=== PATIENT | female | born 1955 | race Hispanic/Latino ===

== ENCOUNTER 2021-11-20 10:40 | Observation (INO) | payer OTHER, MEDICARE ==
[2021-11-18 10:02] LABS: BASOPHILS % (AUTO) 0.9 % (0.0-5.0); EOSINOPHILS % (AUTO) 1.7 % (0.0-8.0); LYMPHOCYTES % (AUTO) 27.3 % (21.0-51.0); MEAN CORPUSCULAR HEMOGLOBIN 30.4 pg (27.0-33.0); MEAN CORPUSCULAR HGB CONC 33.1 g/dL (32.0-36.0); MEAN CORPUSCULAR VOLUME 91.9 fL (79-99); MONOCYTES % (AUTO) 7.3 % (3.0-13.0); NEUTROPHILS % (AUTO) 62.2 % (40.0-77.0); PLATELET COUNT (AUTO) 152 K/uL (130-400); RED BLOOD CELL COUNT(AUTO) 4.57 MIL/uL (4.00-5.50); RED CELL DISTRIBUTION WIDTH 13.7 % (11.0-15.5); WHITE BLOOD COUNT (AUTO) 6.6 K/uL (4.8-10.8)
[2021-11-18 10:11] LABS: CREATININE 0.8 mg/dL (0.5-1.5)
[2021-11-19 11:53] VITALS: BP 161/83
[2021-11-19 14:30] LABS: APPEARANCE,URINE Clear (CLEAR); BILIRUBIN,URINE Negative (NEGATIVE); COLOR,URINE Yellow (YELLOW); GLUCOSE, URINE (UA) Negative (NEGATIVE); KETONES,URINE Negative (NEGATIVE); LEUKOCYTE ESTERASE ,URINE Negative (NEGATIVE); NITRATE,URINE Negative (NEGATIVE); OCCULT BLOOD,URINE Negative (NEGATIVE); PROTEIN,URINE Negative (NEGATIVE); UROBILINOGEN,URINE 0.2 mg/dL (0.2-1.0)
[2021-11-19 14:41] LABS: INR 0.93 (0.85-1.15); PROTHROMBIN TIME 10.2 SEC (9.6-11.6)
[2021-11-19 14:43] LABS: PARTIAL THROMBOPLASTIN TIME 27.1 SEC (26.3-35.5)
[2021-11-20] VITALS (19 sets, daily range): BP systolic 116–151; BP diastolic 57–76
[~2021-11-20] VITALS: Ht 170.2 cm; Wt 117.9 kg
[~2021-11-20 10:40] MED LIST: CEFAZOLIN SODIUM 1 GM VIAL IRRIG ONE; CEFAZOLIN SODIUM 1 GM VIAL IVP SCH; CEFAZOLIN SODIUM 2 GM VIAL IV ONE; CHOL2000 PO; ESTR1TAB17 PO; LEVO175C2 PO; LOSA1TAB37 PO; PONA15TA3 PO; TRANEXAMIC ACID 1000MG/10ML IV ONE
[2021-11-20] MEDS ORDERED: LACTATED RINGERS 1000ML 1,000 ML IV ONE (11:01)
[2021-11-20] MEDS ORDERED: CELECOXIB 200 MG CAP ONE (12:55)
[2021-11-20] MEDS ORDERED: METOCLOPRAMIDE 10 MG/2 ML VIAL ONE (12:55)
[2021-11-20] MEDS ORDERED: ACETAMINOPHEN 500 MG TABLET ONE (12:55)
[2021-11-20] MEDS ORDERED: KETOROLAC 15MG/ML VIAL (15MG/ML) ONE (12:55)
[2021-11-20] MEDS ORDERED: MIDAZOLAM HCL 1 MG/ML 2ML VIAL ONE (14:11)
[2021-11-20] MEDS ORDERED: FENTANYL CITRATE PF 50 MCG/1 ML 5ML AMP IV ONE (14:11)
[2021-11-20] MEDS ORDERED: SUCCINYLCHOLINE CHLORIDE 20 MG/ML 10 ML VIAL ONE (14:11)
[2021-11-20] MEDS ORDERED: ROCURONIUM 10MG/1ML SYR 10 MG/ML ML ONE (14:11)
[2021-11-20] MEDS ORDERED: LIDOCAINE PF 100MG/5ML (2%) SYRINGE 5ML ONE (14:11)
[2021-11-20] MEDS ORDERED: PROPOFOL 10 MG/ML 20ML VIAL IV ONE (14:11)
[2021-11-20] MEDS ORDERED: ROPIVACAINE 0.5% 5MG/ML 30ML IJ ONE (14:13)
[2021-11-20] MEDS ORDERED: CEFAZOLIN SODIUM 2 GM VIAL IV ONE (14:30)
[2021-11-20] MEDS ORDERED: GLYCOPYRROLATE 1 MG/5 ML SYRINGE ONE (14:45)
[2021-11-20] MEDS ORDERED: CEFAZOLIN SODIUM 1 GM VIAL ONE (14:47)
[2021-11-20] MEDS ORDERED: TRANEXAMIC ACID 1000MG/10ML ONE ×2 (14:47→16:56)
[2021-11-20] MEDS ORDERED: TRANEXAMIC ACID 1000MG/10ML IV ONE (15:00)
[2021-11-20] MEDS ORDERED: CEFAZOLIN SODIUM 1 GM VIAL IRRIG ONE (15:10)
[2021-11-20] MEDS ORDERED: NEOSTIGMINE 5MG/5ML SYR IV ONE (16:59)
[2021-11-20] MEDS ORDERED: KETOROLAC 15MG/ML VIAL (15MG/ML) IV PRN (17:00)
[2021-11-20] MEDS ORDERED: POTASSIUM CHLORIDE 20MEQ/100ML 100 ML IV PRN (17:00)
[2021-11-20] MEDS ORDERED: PHENYLEPHRINE HCL 10 MG/ML 1ML VIAL IV ONE (17:00)
[2021-11-20] MEDS ORDERED: DiphenhydrAMINE HCL 50 MG/ML VIAL IVP PRN (17:00)
[2021-11-20] MEDS ORDERED: CALCIUM CARB 500MG PO PRN (17:00)
[2021-11-20] MEDS ORDERED: OXYCODONE HCL 5 MG TAB PO PRN (17:00)
[2021-11-20] MEDS ORDERED: KCL 20 MEQ ERTAB PO PRN (17:00)
[2021-11-20] MEDS ORDERED: TRAMADOL HCL 50 MG TABLET PO PRN (17:00)
[2021-11-20] MEDS ORDERED: POTASSIUM CHLORIDE 10% ELIXIR 20 MEQ/15 ML UDCUP PO PRN (17:00)
[2021-11-20] MEDS ORDERED: FERROUS FUMARATE 324 MG TABLET PO PRN (17:00)
[2021-11-20] MEDS ORDERED: ONDANSETRON 4MG INJ IVP PRN (17:00)
[2021-11-20] MEDS ORDERED: LIDOCAINE HCL-MPF 1% 2ML VIAL IV PRN (17:00)
[2021-11-20] MEDS ORDERED: FENTANYL CITRATE PF 50 MCG/1 ML 2ML VIAL ONE (17:10)
[2021-11-20] MEDS ORDERED: MEPERIDINE-PF 25 MG/ML SYG ONE ×2 (17:41→17:51)
[2021-11-20] MEDS: CELECOXIB 200 MG CAP PO SCH (22:21)
[2021-11-20] MEDS: CEFAZOLIN SODIUM 1 GM VIAL IVP SCH (22:21)
[2021-11-20] MEDS: FAMOTIDINE 20MG TAB PO SCH (22:21)
[2021-11-20] MEDS: PREGABALIN 25 MG CAP PO SCH (22:21)
[2021-11-20] MEDS: 0.9%NACL 1000ML 1,000 ML IV SCH (22:22)
[2021-11-20] MEDS: ACETAMINOPHEN 500 MG TABLET PO SCH (22:22)
[2021-11-21] VITALS (8 sets, daily range): BP systolic 115–144; BP diastolic 51–74
[2021-11-21] MEDS: ACETAMINOPHEN 500 MG TABLET PO SCH ×3 (00:56→17:49)
[2021-11-21] MEDS: 0.9%NACL 1000ML 1,000 ML IV SCH ×2 (03:00→13:00)
[2021-11-21 04:26] LABS: HEMATOCRIT 38.3 % (36-48); MEAN CORPUSCULAR HEMOGLOBIN 31.1 pg (27.0-33.0); MEAN CORPUSCULAR HGB CONC 34.2 g/dL (32.0-36.0); RED BLOOD CELL COUNT(AUTO) 4.21 MIL/uL (4.00-5.50); RED CELL DISTRIBUTION WIDTH 13.3 % (11.0-15.5); WHITE BLOOD COUNT (AUTO) 10.7 K/uL (4.8-10.8)
[2021-11-21 04:50] LABS: CREATININE 0.9 mg/dL (0.5-1.5); POTASSIUM 4.1 mmol/L (3.5-5.1)
[2021-11-21] MEDS: CEFAZOLIN SODIUM 1 GM VIAL IVP SCH (05:12)
[2021-11-21] MEDS: PREGABALIN 25 MG CAP PO SCH ×2 (08:40→20:26)
[2021-11-21] MEDS: CELECOXIB 200 MG CAP PO SCH ×2 (08:41→20:26)
[2021-11-21] MEDS: APIXABAN 2.5 MG TABLET PO SCH ×2 (08:41→20:26)
[2021-11-21] MEDS: FAMOTIDINE 20MG TAB PO SCH ×2 (08:41→20:26)
[2021-11-21] MEDS: POLYETHYLENE GLYCOL 3350 17 GM POWD.PACK PO SCH (08:41)
[2021-11-21] MEDS: LOSARTAN/HYDROCHLOROTHIAZIDE 50-12.5MG TABLET PO SCH (08:41)
[2021-11-21] MEDS: ESTRADIOL 0.5 MG TABLET PO SCH (08:42)
[2021-11-21] MEDS: **HM**(Cholecalciferol (Vitamin D3) (Vitamin D3) 50 MCG PO SCH (08:42)
[2021-11-21] MEDS: PONATINIB HCL PO SCH (08:43)
[2021-11-21] MEDS: LEVOTHYROXINE 100 MCG TABLET PO SCH (08:46)
[2021-11-21] MEDS: LEVOTHYROXINE 75 MCG TABLET PO SCH (08:46)
[2021-11-21] MEDS: OXYCODONE HCL 5 MG TAB PO PRN ×3 (08:47→17:49)
[2021-11-22] MEDS: ACETAMINOPHEN 500 MG TABLET PO SCH ×3 (01:00→16:34)
[2021-11-22 03:51] VITALS: BP 131/69
[2021-11-22] MEDS: LEVOTHYROXINE 75 MCG TABLET PO SCH (05:57)
[2021-11-22] MEDS: LEVOTHYROXINE 100 MCG TABLET PO SCH (05:57)
[2021-11-22 07:59] VITALS: BP 103/55
[2021-11-22] MEDS: POLYETHYLENE GLYCOL 3350 17 GM POWD.PACK PO SCH (08:38)
[2021-11-22] MEDS: ESTRADIOL 0.5 MG TABLET PO SCH (08:39)
[2021-11-22] MEDS: LOSARTAN/HYDROCHLOROTHIAZIDE 50-12.5MG TABLET PO SCH ×2 (08:39→09:00)
[2021-11-22] MEDS: FAMOTIDINE 20MG TAB PO SCH (08:40)
[2021-11-22] MEDS: CELECOXIB 200 MG CAP PO SCH (08:40)
[2021-11-22] MEDS: PREGABALIN 25 MG CAP PO SCH (08:41)
[2021-11-22] MEDS: APIXABAN 2.5 MG TABLET PO SCH (08:41)
[2021-11-22] MEDS: OXYCODONE HCL 5 MG TAB PO PRN (08:42)
[2021-11-22] MEDS: PONATINIB HCL PO SCH (09:00)
[2021-11-22] MEDS: **HM**(Cholecalciferol (Vitamin D3) (Vitamin D3) 50 MCG PO SCH (09:00)
[2021-11-22 11:04] VITALS: BP 115/70
[2021-11-22] MEDS ORDERED: HYDR-4060 PO (15:47)
[2021-11-22] MEDS ORDERED: APIX2.5T PO (15:47)
[2021-11-23] MEDS ORDERED: BISACODYL 10 MG SUPP.RECT RC PRN (17:00)
== END 2021-11-22 18:04 ==
LOC: DAH 10:40 → DAHIP 10:41 → DAH 10:41 → 4BH 18:21
PROVIDERS: ADMIT Orthopaedic Surgery; ATTEND Orthopaedic Surgery
DX: M17.12 Unilateral primary osteoarthritis, left knee (principal); Z20.822 Contact with and (suspected) exposure to COVID-19; M25.562 Pain in left knee; G89.29 Other chronic pain; M21.062 Valgus deformity, not elsewhere classified, left knee; I10 Essential (primary) hypertension; E03.9 Hypothyroidism, unspecified; K80.80 Other cholelithiasis without obstruction; R26.89 Other abnormalities of gait and mobility; Z85.6 Personal history of leukemia; Z90.710 Acquired absence of both cervix and uterus; Z90.49 Acquired absence of other specified parts of digestive tract; Z79.899 Other long term (current) drug therapy; Z98.890 Other specified postprocedural states
CPT/HCPCS: 27447; 36415 ×3; 64447; 76942; 80048 ×2; 81003; 85025; 85027; 85610; 85730; 87635; 87641; 96374; 96375; 96376; 97039 ×4; 97116 ×4; 97161; 97530 ×2; A4215; A4221; A4222; A4223; A4600; A4649 ×5; A4663; A5120; A9272; C1776; C9803; G0378 ×46; J0330; J0690 ×6; J1885 ×2; J2001; J2175 ×2; J2250; J2370; J2704; J2710; J2765; J2795; J3010 ×2; J3490 ×4; J7030; J7120

== ENCOUNTER 2024-08-23 10:41 | Day surgery (SDC) | payer OTHER, MEDICARE ==
[2024-08-21 11:09] VITALS: BP 133/71; PULSE 61; RESP 18; TEMP 97.2
[2024-08-21 11:09] LABS: BASOPHILS # (AUTO) 0.08 K/uL (0.00-0.20); BASOPHILS % (AUTO) 0.9 % (0.0-5.0); EOSINOPHILS # (AUTO) 0.16 K/uL (0.00-0.70); EOSINOPHILS % (AUTO) 1.9 % (0.0-8.0); HEMATOCRIT 40.3 % (36-48); IMMATURE GRANULOCYTE ABSOLUTE 0.06 K/uL (0-1); LYMPHOCYTES % (AUTO) 23.2 % (21.0-51.0); MEAN CORPUSCULAR HEMOGLOBIN 30.3 pg (27.0-33.0); MEAN CORPUSCULAR HGB CONC 33.3 g/dL (32.0-36.0); MEAN CORPUSCULAR VOLUME 91.2 fL (79-99); MONOCYTES # (AUTO) 0.6 K/uL (0.1-1.0); MONOCYTES % (AUTO) 7.2 % (3.0-13.0); NEUTROPHILS # (AUTO) 5.6 K/uL (1.8-7.7); NEUTROPHILS % (AUTO) 66.1 % (40.0-77.0); PLATELET COUNT (AUTO) 224 K/uL (130-400); RED BLOOD CELL COUNT(AUTO) 4.42 MIL/uL (4.00-5.50); RED CELL DISTRIBUTION WIDTH 14.2 % (11.0-15.5); WHITE BLOOD COUNT (AUTO) 8.5 K/uL (4.8-10.8)
[2024-08-21 11:19] LABS: INR 0.97 (0.85-1.15); PROTHROMBIN TIME 10.3 SEC (9.6-11.6)
[2024-08-21 11:21] LABS: CREATININE 0.9 mg/dL (0.5-1.0); PARTIAL THROMBOPLASTIN TIME 26.3 SEC (26.3-35.5); POTASSIUM 4.5 mmol/L (3.5-5.1)
--- NOTE | 2024-08-21 11:34 | HMCIMG ---
Exam Type: CHEST 1VW Clinical Information: PRE OP Comparison: None Findings: The lungs are clear of infiltrates. The heart is normal in size. The bony and soft tissue structures of the chest are unremarkable. Impression: Clear lungs.
[2024-08-21 11:41] LABS: B-TYPE NATRIURETIC PEPTIDE 57 pg/mL (0-100)
--- NOTE | 2024-08-21 11:47 | EKG ---
[facility] Test Date: 2024-08-21 Test Time: 10:49:30 Pat Name: LUCIA MADSEN Department: [facility] Room: Gender: F Surgical Coordinator: [id number] : 1955 Requested By: VIOLETA GARCIA Order Number: [id number] Reading MD: Maximino Wharton Measurements Intervals [place] Rate: 58 P: 16 GA: 199 QRS: -47 QRSD: 139 T: 58 QT: 429 QTc: 410 Interpretive Statements Sinus rhythm Multiple ventricular premature complexes Nonspecific IVCD with LAD Left ventricular hypertrophy No previous ECG available for comparison Electronically Signed On 08-22-2024 23:24:32 CDT by Maximino Wharton Please click the below link to view image of tracing.
[~2024-08-23] VITALS: Ht 170.2 cm; Wt 107.4 kg
[2024-08-23] VITALS (8 sets, daily range): BP systolic 124–154; BP diastolic 67–88; PULSE 57–72; RESP 10–18; TEMP 97.2–97.4
[~2024-08-23 10:41] MED LIST changes: +ASPI-1443 PO; +BIOT5000 PO; -CEFAZOLIN SODIUM 1 GM VIAL IRRIG ONE; -CEFAZOLIN SODIUM 1 GM VIAL IVP SCH; -CEFAZOLIN SODIUM 2 GM VIAL IV ONE; +HYDR25TA PO; +LACT-441 PO; +LEVO150C4 PO; -LEVO175C2 PO; +LOSA100T59 PO; -LOSA1TAB37 PO; +MAGN250T10 PO; +ROSU10TA72 PO; -TRANEXAMIC ACID 1000MG/10ML IV ONE
[2024-08-23] MEDS: 0.9%NACL 1000ML 1,000 ML IV SCH (11:30)
[2024-08-23] MEDS ORDERED: LIDOCAINE HCL 400MG/20ML VIAL ONE (14:10)
[2024-08-23] MEDS ORDERED: IOHEXOL 350 MG/ML 100ML INFUS..BTL IV ONE (14:11)
[2024-08-23] MEDS ORDERED: NITROGLYCERIN 50MG VIAL ONE (14:11)
[2024-08-23] MEDS ORDERED: IOHEXOL-350 50ML VIAL IV ONE (14:12)
[2024-08-23] MEDS ORDERED: niCARDIpine 25MG INJ IV ONE (14:12)
[2024-08-23] MEDS ORDERED: HEParin-NS 1,000 UNIT/500 ML 1,000 ML IV ONE (14:12)
[2024-08-23] MEDS ORDERED: HEParin 10,000 UNIT/10ML (1,000 UNIT/ML) VIAL ONE (14:13)
[2024-08-23] MEDS ORDERED: MIDAZOLAM HCL 1 MG/ML 2ML VIAL ONE (14:43)
[2024-08-23] MEDS ORDERED: FENTanyl CITRate PF 50 MCG/1 ML 2ML VIAL ONE (14:43)
[2024-08-23] MEDS ORDERED: VERAPAMIL HCL 2.5 MG/ML VIAL ONE (14:58)
--- NOTE | 2024-08-23 17:05 | NUR ---
vasc band: vasc band removed with no active bleeding present. cleansed area with ChloraPrep followed by applying sterile 2x2 gauze then tegaderm. no swelling or redness noted to surrounding area rt wrist.
--- NOTE | 2024-08-23 20:22 | PR ---
PROCEDURES: * Left heart catheterization with selective coronary artery angiography. * Left ventriculography. INDICATIONS: This is a 70-year-old woman who presents for evaluation of positive stress test. She had atypical symptoms. She underwent stress scintigraphy, was found to have a positive result. She is now being referred for left heart catheterization. DESCRIPTION OF PROCEDURE: After informed consent was obtained, she was prepped and draped in the usual fashion for angiography via the right radial artery. Informed consent was noted and the procedure was discussed with the patient. The right radial area was then prepped. Ultrasound guidance was used to enter the radial artery without difficulty. A sheath was placed. Once the sheath was placed, cineangiography took place with a TIG catheter without difficulty. FINDINGS: She was found to have a very tortuous left anterior descending artery, but had no stenosis. It is hyperdominant circumflex with a large array of posterolateral, posterior descending and obtuse marginals, none had significant stenosis. The right coronary artery was a rather diminutive artery with a 40% stenosis, but was clearly nondominant and had diminutive flow beyond. Nevertheless, the entire inferior and lateral wall was supplied by the circumflex. Next, left ventriculography was then done which demonstrated left ventricular end-diastolic pressure of about 6. Her blood pressure at that time was somewhat low. She was supplemented with bolus normal saline. Blood pressure improved. Left ventricular systolic function was noted to be normal, was about 60% without segmental wall abnormalities. The patient tolerated the procedure well. She will be treated medically. There were no complications. TID: [id number] RECEIPT: [id number]
== END 2024-08-23 18:05 | disposition home or self-care (01) ==
LOC: DAH 10:41
PROVIDERS: ATTEND Internal Medicine Interventional Cardiology
DX: R06.09 Other forms of dyspnea (principal); I10 Essential (primary) hypertension; R00.2 Palpitations; I49.1 Atrial premature depolarization; I49.3 Ventricular premature depolarization; E78.2 Mixed hyperlipidemia; G60.8 Other hereditary and idiopathic neuropathies; M79.661 Pain in right lower leg; M79.662 Pain in left lower leg; Z71.3 Dietary counseling and surveillance; Z71.82 Exercise counseling; Z79.899 Other long term (current) drug therapy; Z71.6 Tobacco abuse counseling; Z87.891 Personal history of nicotine dependence; Z98.890 Other specified postprocedural states; Z90.49 Acquired absence of other specified parts of digestive tract; Z90.710 Acquired absence of both cervix and uterus
CPT/HCPCS: 80048; 83880; 85025; 85610; 85730; 36415; 71045; 93005; 93458; C1769; C1894 ×3; A4649; Q9965 ×2; J3010; J3490 ×4; J7030; J1644 ×2; J2250; Q9967 ×2; A4215; A4222; A4221; A4663; A4216; A4606; A4223 ×3; 99156; 99157